=== PATIENT | male | born 2005 | race Caucasian/White ===

== ENCOUNTER 2024-07-03 14:23 | Emergency (ER) | payer OTHER, SELFPAY ==
[2024-07-03 14:25] VITALS: BP 134/80
[2024-07-03 14:30] VITALS: BP 134/80
[2024-07-03] MEDS: NSS 1000 IV (14:42)
--- NOTE | 2024-07-03 14:42 | ED.GENMED ---
History of Present Illness
General
Chief Complaint: Dizziness
Source: patient
Exam Limitations: none
Time Seen by Provider: 07/03/24 14:24
History of Present Illness
History of Present Illness:
19-year-old male with history of autism spectrum disorder, bipolar and open DD on lithium presents from urgent care after reporting to urgent care from place an appointment near syncopal episode. He was stocking shelves and developed
lightheadedness heart racing and some discomfort in his chest. He went to the urgent care EKG was performed with heart attack and EMS was called. EMS gave 324 mg of aspirin en route and patient notes that he is feeling better on arrival.
Currently denies chest discomfort. No abdominal pain or nausea. He states he felt sweaty during this episode. He states he has been taking his lithium as prescribed.
Past History
Social History
Tobacco: Non-smoker
Alcohol: None
Drug: None
Phy Exam
Physical Exam
Physical Exam:
General: Well-appearing male no acute respiratory distress
HEENT: Normocephalic atraumatic
Heart: Regular rate and rhythm no murmurs
Lungs: Clear no wheeze or rales
Abdomen is soft nontender nondistended
Extremities: No cyanosis or edema
Course
Orders/Labs/Results
Orders:
Orders
07/03/24 14:24
Electrocardiogram (*1) Urgent
Reason for Study: Vertigo / Dizzy
07/03/24 14:25
EKG- Treatment ONCE
07/03/24 14:34
Complete Blood Count/With Diff Urgent
Comprehensive Metabolic Panel Urgent
Frazer Urgent
Troponin I Urgent
07/03/24 14:39
0.9% Sodium Chloride 1000 ml [Nss] 1,000 ml IV BOLUS
Abnormal Lab Results
07/03/24
14:34
Glucose 102 H mg/dl
(70-99)
Calcium 10.3 H mg/dl
(8.4-10.2)
Total Bilirubin 1.4 H mg/dl
(0.2-1.3)
Albumin 5.2 H g/dl
(3.5-5.0)
07/03/24 14:34
07/03/24 14:34
Vital Signs
Initial and Last Documented VS:
Initial Vital Signs
Temp Pulse Resp BP Pulse Ox
98.5 F 62 14 134/80 95
07/03/24 14:25 07/03/24 14:25 07/03/24 14:25 07/03/24 14:25 07/03/24 14:25
Last Documented Vital Signs
Temp Pulse Resp BP Pulse Ox
98.5 F 59 16 134/80 100
07/03/24 14:30 07/03/24 14:30 07/03/24 14:30 07/03/24 14:30 07/03/24 14:35
MDM/Problems Addressed
Differential Diagnosis Includes:
Lightheaded sensation with chest discomfort. Consider arrhythmia versus ACS. Symptoms have resolved do not suspect PE. I reviewed EKG from urgent care which was thought to be showing MMI however this looks more like early repolarization. He was
bradycardic at the time of the EKG. EKG ordered here will check labs.
*Critical Care Note
Total Time (30-74mins, 75-104mins- exclusive of procedures): Not Applicable
Update Note
Update Note:
Workup here negative. Vital stable feeling better after hydration. I suspect vasovagal issue do not suspect ACS or PE given resolution of symptoms. Father now in the room he is in agreement. Father also endorsed that patient had a energy drink
going to work on an empty stomach. This may have had something to do with his palpitations.
ED Attending Note
-
Portions of this chart may have been created with voice recognition software.� Occasional wrong word or��sound alike� substitutions may have occurred due to the inherent limitations of voice recognition software.
Discharge Plan
Departure
Patient Disposition: Home (Routine Discharge)
Date of Disposition: 07/03/24
Time of Disposition: 15:55
Patient with high blood pressure during this ER visit?: No
Discharge Problem:
Near syncope
Instructions: Vasovagal Response
Prescriptions:
No Action
amoxicillin 200 MG/5 ML suspension for reconstitution
1 tsp PO BID
ibuprofen [Advil] 100 MG tablet
100 mg PO
methylphenidate HCl [Concerta] 18 MG tablet extended release 24hr
18 mg PO MOTUWETHFR
aripiprazole 10 MG tablet
5 mg PO DAILY
benztropine 0.5 MG tablet
0.5 mg PO BID Qty: 14 0RF
Referrals:
UNKNOWN - PT DOES,NOT KNOW [Family Provider] -
Activity Restrictions/Additional Instructions:
Stay hydrated. Avoid energy drinks. Return if worse otherwise follow-up with your doctor
Interventions
Interventions:
*Risk Screen - Suicide Last Done: 07/03/24 14:32
*General Assessment Last Done: 07/03/24 14:32
*Neglect/Abuse Screening Last Done: 07/03/24 14:32
ED- Fall Risk Assessment Last Done: 07/03/24 14:35
*ED COVID-19 Vaccine History Last Done: 07/03/24 14:32
ED- Neurological Assessment Last Done: 07/03/24 14:35
ED- Cardiac Assessment Last Done: 07/03/24 14:36
ED Swallowing Screen Last Done: 07/03/24 14:35
Discharge Date and Time
Print Language: KENYAN
[2024-07-03 14:44] LABS: % Basophils 0.9 % (0-2); % Eosinophils 1.6 % (0-6); % Immature Granulocytes 0.3 % (0-0.5); % Lymphocytes 32.2 % (20.5-51.1); % Monocytes 6.2 % (1.7-9.3); % Neutrophils 58.8 % (42.2-75.2); Absolute Basophils 0.1 10^3/uL (0-0.2); Absolute Eosinophils 0.1 10^3/uL (0-0.7); Absolute Lymphocytes 2.2 10^3/uL (1.2-3.4); Absolute Monocytes 0.4 10^3/uL (0.1-0.6); Absolute Neutrophils 4.1 10^3/uL (1.4-6.5); Hematocrit 42.9 % (39.0-52.0); Hemoglobin 14.6 g/dL (13.0-18.0); Mean Corpuscular Hgb 28.3 pg (27.0-31.0); Mean Corpuscular Volume 83.3 fL (80.0-94.0); Mean Platelet Volume 9.5 fL (7.4-10.4); Nucleated Red Blood Cells % 0 % (-); Platelet Count 192 10^3/uL (130-400); Red Blood Cell Count 5.15 10^6/uL (4.70-6.10); Red Cell Dist. Width 13.2 % (11.5-14.5); White Blood Cell Count 6.9 10^3/uL (4.8-10.8)
[2024-07-03 15:00] VITALS: BP 98/67
[2024-07-03 15:05] LABS: ALT (SGPT) 19 U/L (0-50); AST (SGOT) 35 U/L (17-59); Albumin 5.2 g/dl (3.5-5.0); Alkaline Phosphatase 64 U/L (38-126); Blood Urea Nitrogen 14 mg/dl (9-20); Calcium 10.3 mg/dl (8.4-10.2); Carbon Dioxide 27 mmol/L (22-30); Chloride 102 mmol/L (98-107); Glucose 102 mg/dl (70-99); Lithium 0.7 mmol/L (0.6-1.2); Potassium 4.2 mmol/L (3.5-5.1); Sodium 142 mmol/L (135-145); Total Bilirubin 1.4 mg/dl (0.2-1.3); Total Protein 7.6 g/dl (6.3-8.2); eGFR > 60.00
[2024-07-03 15:13] LABS: Troponin I < 0.012 ng/ml
[2024-07-03 15:58] VITALS: BP 98/86
== END 2024-07-03 16:05 | disposition home or self-care (01) ==
LOC: EMR 14:23
PROVIDERS: Physician Assistant; EMERGENCY PHYSICIAN Student in an Organized Health Care Education/Training Program
DX: R55 Syncope and collapse (principal); F84.0 Autistic disorder
CPT/HCPCS: 99284; 96360; 80053; 80178; 84484; 85025; 93005